=== PATIENT | female | born 1985 | race American Indian/Alaskan Native ===

== ENCOUNTER 2017-11-24 20:03 | Emergency (ER) | payer BC ==
--- NOTE | 2017-11-24 20:44 | ED PDOC ---
Arrival/HPI - General Chief Complaint: Chest Pain Time Seen by Provider: 11/24/17 20:07 Historian: Patient - History of Present Illness Narrative History of Present Illness (Text): 11/24/17 20:40 Jill Morales is a 32 year old female who presents to the emergency department complaining of midsternal chest pain on inhalation since last night. This morning, patient states that pain went to her back, prompting her to come to the emergency department. Patient notes that she has recently undergone Breast Augmentation 2 weeks ago. Patient denies any coughs, leg pain, or any other complaints at this time. Time/Duration: 24 hours Symptom Onset: Gradual Symptom Course: Unchanged Activities at Onset: Light Context: Home Past Medical History - Provider Review Nursing Documentation Reviewed: Yes - Infectious Disease Hx of Infectious Diseases: None - Tetanus Immunization Tetanus Immunization: Unknown - Past Medical History Past Medical History: No Previous - Psychiatric Hx Psychophysiologic Disorder: No Hx Anxiety: No Hx Bipolar Disorder: No Hx Depression: No Hx Emotional Abuse: No Hx Hallucinations: No Hx Panic Disorder: No Hx Post Traumatic Stress Disorder: No Hx Psychosis: No Hx Physical Abuse: No Hx Schizophrenia: No Hx Sexual Abuse: No Hx Substance Use: No - Past Surgical History Past Surgical History: No Previous - Surgical History Other/Comment: breast augmentation 11/10/17 - Anesthesia Hx Anesthesia: Yes Hx Anesthesia Reactions: No Hx Malignant Hyperthermia: No - Suicidal Assessment Feels Threatened In Home Enviroment: No Family/Social History - Physician Review Nursing Documentation Reviewed: Yes Family/Social History: No Known Family HX Smoking Status: Never Smoked Hx Alcohol Use: No Hx Substance Use: No Hx Substance Use Treatment: No Allergies/Home Meds Allergies/Adverse Reactions: Allergies No Known Allergies Allergy (Verified 10/10/14 17:27) Review of Systems - Physician Review All systems were reviewed & negative as marked: Yes - Review of Systems Constitutional: absent: Fevers, Night Sweats Eyes: absent: Vision Changes ENT: absent: Hearing Changes Respiratory: absent: SOB, Cough Cardiovascular: Chest Pain (on inhalation) Gastrointestinal: absent: Abdominal Pain Genitourinary Female: absent: Dysuria Musculoskeletal: Back Pain. absent: Arthralgias Skin: absent: Rash Neurological: absent: Headache Endocrine: absent: Diaphoresis Hemo/Lymphatic: absent: Adenopathy Psychiatric: absent: Anxiety, Depression Physical Exam Vital Signs Reviewed: Yes - Systems Exam Head: Present: Atraumatic, Normocephalic Pupils: Present: PERRL Extroacular Muscles: Present: EOMI Conjunctiva: Present: Normal Mouth: Present: Moist Mucous Membranes Neck: Present: Normal Range of Motion Respiratory/Chest: Present: Tender to Palpation Cardiovascular: Present: Regular Rate and Rhythm, Normal S1, S2. No: Murmurs Abdomen: No: Tenderness, Distention, Peritoneal Signs Back: Present: Normal Inspection Upper Extremity: Present: Normal Inspection. No: Cyanosis, Edema Lower Extremity: Present: Normal Inspection. No: Edema Neurological: Present: GCS=15, CN II-XII Intact, Speech Normal Skin: Present: Warm, Dry, Normal Color. No: Rashes Psychiatric: Present: Alert, Oriented x 3, Normal Insight, Normal Concentration Medical Decision Making ED Course and Treatment: 11/24/17 20:46 Impression: 32 year old female complaining of midsternal chest pain on inhalation since last night. Plan: -- EKG -- Chest X-ray -- Labs -- Reassess and disposition Progress Notes: 11/24/17 22:38 EKG: Ordered, reviewed, and independently interpreted the EKG. Rate : 81 BPM Rhythm : NSR Interpretation : Normal intervals, normal EKG CT Angiography Chest With Intravenous Contrast FINDINGS: Pulmonary arteries: No definite pulmonary embolism. Aorta: No aneurysm. Great vessels of aortic arch: Aberrant RIGHT subclavian artery. Lungs: Mild atelectasis/scarring. No consolidation. 0.3 cm RIGHT lower lobe nodule. Pleural space: Trace to small RIGHT pleural effusion. No pneumothorax. Heart: Borderline cardiomegaly. No significant pericardial effusion. Mediastinum: Mild mucus within trachea. Bones/joints: No acute fracture. Soft tissues: Breast implants. Lymph nodes: No pathologically enlarged lymph nodes. Upper abdomen: Elevated RIGHT hemidiaphragm. IMPRESSION: 1. No definite CT evidence of pulmonary embolism. 2. Pulmonary nodule. For low-risk patients, no follow-up is necessary. For high- risk patients (smoking history or other known risk factors) an optional CT at 12 months could be performed. 3. Incidental/non-acute findings are described above. Dictated and Authenticated by: Scott Mukherjee MD 11/25/2017 12:25 AM Eastern Time ([place] & [place]) 11/25/17 01:04 Chest X-ray- No acute process, as read by me. - Lab Interpretations Lab Results: 11/24/17 21:00 11/24/17 21:00 Lab Results 11/24/17 21:00: WBC 13.6 H D, RBC 3.87, Hgb 11.8 L, Hct 33.6 L, MCV 86.8, MCH 30.5, MCHC 35.1, RDW 12.3, Plt Count 304, MPV 10.0 11/24/17 21:00: Sodium 138, Potassium 3.8, Chloride 103, Carbon Dioxide 25, Anion Gap 14, BUN 8, Creatinine 0.6 L, Est GFR ( Amer) > 60, Est GFR (Non -Af Amer) > 60, Random Glucose 94, Calcium 9.7, Total Bilirubin 0.4, AST 29, ALT 26, Alkaline Phosphatase 60, Lactate Dehydrogenase 399, Total Creatine Kinase 164, Troponin I < 0.01, Total Protein 7.6, Albumin 4.2, Globulin 3.4, Albumin/Globulin Ratio 1.3 11/24/17 21:00: PT 12.3, INR 1.08, APTT 28.3, D-Dimer, Quantitative 667 H I have reviewed the lab results: Yes - RAD Interpretation Radiology Orders: 11/24/17 20:47 CHEST PORTABLE [RAD] Stat 11/24/17 22:02 ANGIO CHEST PE PROTOCOL [CT] Stat - Medication Orders Current Medication Orders: Sodium Chloride (Sodium Chloride 0.9%) 1,000 mls @ 100 mls/hr IV .Q10H [place] Last Admin: 11/24/17 22:37 Dose: 100 mls/hr eMAR Start Stop Document 11/24/17 22:37 EQ (Rec: 11/24/17 22:37 EQ [id number]) Intravenous Solution Start Date 11/24/17 Start Time 22:37 Discontinued Medications Ketorolac Tromethamine (Toradol) 30 mg IVP ONCE ONE Stop: 11/25/17 01:05 - Scribe Statement The provider has reviewed the documentation as recorded by the Scribe Mariana Barroso Provider Scribe Attestation: All medical record entries made by the Scribe were at my direction and personally dictated by me. I have reviewed the chart and agree that the record accurately reflects my personal performance of the history, physical exam, medical decision making, and the department course for this patient. I have also personally directed, reviewed, and agree with the discharge instructions and disposition. Disposition/Present on Arrival - Present on Arrival Any Indicators Present on Arrival: No History of DVT/PE: No History of Uncontrolled Diabetes: No Urinary Catheter: No History of Decub. Ulcer: No History Surgical Site Infection Following: None - Disposition Have Diagnosis and Disposition been Completed?: Yes Diagnosis: Musculoskeletal chest pain, Bronchitis Disposition: HOME/ ROUTINE Disposition Time: 01:34 Patient Plan: Discharge Condition: GOOD Discharge Instructions (ExitCare): Chest Pain (ED), Acute Bronchitis, Adult (DC ) Additional Instructions: Take meds as prescribed/rest/no strenuous physical activity/follow up with your doctor this week Prescriptions: Naproxen [Naprosyn] 500 mg PO BID PRN #14 tab PRN Reason: Pain Azithromycin [Zithromax] 250 mg PO DAILY #6 tab Forms: [facility] (Kinyarwanda)
[2017-11-24 21:15] LABS: HEMOGLOBIN 11.8 g/dL (12.0-16.0); MEAN CELL VOLUME 86.8 fl (80.0-105.0); MEAN CORPUSCULAR HEMOGLOBIN 30.5 pg (25.0-35.0); MEAN CORPUSCULAR HGB CONC 35.1 g/dl (31.0-37.0); RBC 3.87 10^6/uL (3.5-6.1); RED CELL DISTRIBUTION WIDTH 12.3 % (11.5-14.5); WHITE BLOOD COUNT 13.6 10^3/ul (4.5-11.0)
[2017-11-24 21:26] LABS: INR 1.08 (0.93-1.08); PARTIAL THROMBOPLASTIN TIME 28.3 Seconds (25.1-36.5); PROTHROMBIN TIME 12.3 SECONDS (9.4-12.5)
[2017-11-24 21:27] LABS: ALB/GLOB RATIO 1.3 (1.1-1.8); ALBUMIN 4.2 g/dL (3.0-4.8); ALT/SGPT 26 U/L (7-56); AST/SGOT 29 U/L (14-36); BLOOD UREA NITROGEN 8 mg/dL (7-21); CALCIUM 9.7 mg/dL (8.4-10.5); GFR AFRICAN-AMERICAN > 60; GFR NON-AFRICAN AMERICAN > 60
[2017-11-24 21:38] LABS: TROPONIN I < 0.01 ng/mL
[2017-11-24] MEDS ORDERED: Sodium Chloride 0.9% 1,000 ML IV SCH (22:15)
[2017-11-24 22:45] VITALS: BMI 31.6
[2017-11-24] MEDS ORDERED: Iohexol 350 MG/100 ML VIAL ONE (23:05)
--- NOTE | 2017-11-25 00:25 | CT ---
EXAM: CT Angiography Chest With Intravenous Contrast CLINICAL HISTORY: 32 years old, female; Pain; Chest pain; Prior surgery; Surgery type: Breast augmentation 11/10/17; Additional info: SOB TECHNIQUE: Axial computed tomographic angiography images of the chest with intravenous contrast using pulmonary embolism protocol. All CT scans at this facility use one or more dose reduction techniques, viz.: automated exposure control; ma/kV adjustment per patient size (including targeted exams where dose is matched to indication; i.e. head); or iterative reconstruction technique. MIP reconstructed images were created and reviewed. Coronal and sagittal reformatted images were created and reviewed. CONTRAST: 91 mL of OMNI 350 administered intravenously. COMPARISON: DX - CHEST PORTABLE 2017-11-24 21:39 FINDINGS: Pulmonary arteries: No definite pulmonary embolism. Aorta: No aneurysm. Great vessels of aortic arch: Aberrant RIGHT subclavian artery. Lungs: Mild atelectasis/scarring. No consolidation. 0.3 cm RIGHT lower lobe nodule. Pleural space: Trace to small RIGHT pleural effusion. No pneumothorax. Heart: Borderline cardiomegaly. No significant pericardial effusion. Mediastinum: Mild mucus within trachea. Bones/joints: No acute fracture. Soft tissues: Breast implants. Lymph nodes: No pathologically enlarged lymph nodes. Upper abdomen: Elevated RIGHT hemidiaphragm. IMPRESSION: 1. No definite CT evidence of pulmonary embolism. 2. Pulmonary nodule. For low-risk patients, no follow-up is necessary. For high-risk patients (smoking history or other known risk factors) an optional CT at 12 months could be performed. 3. Incidental/non-acute findings are described above.
[2017-11-25 01:36] VITALS: BP 142/73; PULSE 81; RESP 17; TEMP 98.2; O2SAT 100
[2017-11-25] MEDS ORDERED: Albuterol-Ipratrop 3 mg / 0.5 (3 ml) UD IH STA (01:42)
--- NOTE | 2017-11-25 07:40 | RAD ---
HISTORY: chest pain COMPARISON: No prior. FINDINGS: LUNGS: No active pulmonary disease. PLEURA: No significant pleural effusion identified, no pneumothorax apparent. CARDIOVASCULAR: Normal. OSSEOUS STRUCTURES: No significant abnormalities. VISUALIZED UPPER ABDOMEN: Normal. OTHER FINDINGS: None. IMPRESSION: No active disease.
--- NOTE | 2017-11-25 11:19 | CARD ---
APPROVED REPORT EKG Measurement Heart [id number] <Conclusion> Normal sinus rhythm Normal ECG
== END 2017-11-25 03:06 | disposition home or self-care (01) ==
LOC: ED 20:03
DX: J20.9 Acute bronchitis, unspecified (principal); R07.89 Other chest pain
CPT/HCPCS: 71045; 71275; 80053; 82550; 83615; 84484; 85027; 85378; 85610; 85730; 93005; 96374; 99284; J1885; J7040; Q9967